=== PATIENT | male | born 1940 | race Caucasian/White ===

== ENCOUNTER 2017-11-19 09:53 | Day surgery (SDC) | payer MEDICARE, OTHER ==
[2017-11-19] VITALS (12 sets, daily range): BP systolic 114–149; BP diastolic 43–62
[~2017-11-19] VITALS: Ht 165.1 cm; Wt 75.7 kg
[~2017-11-19 09:53] MED LIST: ACET-2615 PO; ASPI81TA52 PO; CLOP75TA35 PO; MERC50TA2 PO; MESA0.37 PO; MULT-1085 PO; NIFE20CA PO; POTA20TA10 PO; PRED5TAB PO; ROSU20TA PO
[2017-11-19] MEDS ORDERED: diphenhydrAMINE 25mg capsule PO PRN (10:20)
[2017-11-19] MEDS ORDERED: normal saline 1000ml 1,000 ML IV SCH (10:20)
[2017-11-19] MEDS ORDERED: LORazepam 0.5 MG tablet PO PRN (10:20)
[2017-11-19] MEDS ORDERED: LIDOcaine/PRILOcaine 5gm cream TP ONE (10:20)
[2017-11-19] MEDS ORDERED: SPIR25TA PO (11:41)
[2017-11-19] MEDS ORDERED: ACET1TAB12 PO (11:41)
[2017-11-19] MEDS ORDERED: ROSU20TA PO (11:41)
[2017-11-19] MEDS ORDERED: LISI-600 PO (11:41)
[2017-11-19] MEDS ORDERED: nitroGLYCERIN-Tridil 50MG/D5W 250 ML IV ONE (12:10)
[2017-11-19] MEDS ORDERED: verapamil 2.5 mg/ml inj IV ONE (12:10)
[2017-11-19] MEDS ORDERED: heparin 1,000unit/ml 10ml vial 10 ML ONE (12:11)
[2017-11-19] MEDS ORDERED: LIDOcaine 1% 30ml preserv. free vial ONE (12:11)
[2017-11-19] MEDS ORDERED: midazolam 2 mg/2 ml injection ONE (12:11)
[2017-11-19] MEDS ORDERED: iohexol 350MG/ML 100ml bottle IV ONE ×2 (12:11→12:56)
[2017-11-19] MEDS ORDERED: fentaNYL/PF 50MCG/1 ML 2ML syringe ONE (12:11)
[2017-11-19] MEDS ORDERED: proCHLORperazine 10 MG/2 ml inj IV PRN (13:50)
[2017-11-19] MEDS ORDERED: OXAZEpam 15mg capsule PO PRN (13:50)
[2017-11-19] MEDS ORDERED: ondansetron/PF 4mg/2ml inj IV PRN (13:50)
== END 2017-11-19 18:50 | disposition home or self-care (01) ==
LOC: SSTAY O 09:53
PROVIDERS: ATTEND Internal Medicine Interventional Cardiology
DX: I25.10 Atherosclerotic heart disease of native coronary artery without angina pectoris (principal); I35.0 Nonrheumatic aortic (valve) stenosis; I73.9 Peripheral vascular disease, unspecified; I12.9 Hypertensive chronic kidney disease with stage 1 through stage 4 chronic kidney disease, or unspecified chronic kidney disease; N18.9 Chronic kidney disease, unspecified; E78.5 Hyperlipidemia, unspecified; I65.23 Occlusion and stenosis of bilateral carotid arteries; I71.4 Abdominal aortic aneurysm, without rupture; I49.8 Other specified cardiac arrhythmias; M19.90 Unspecified osteoarthritis, unspecified site; Z90.89 Acquired absence of other organs; Z96.653 Presence of artificial knee joint, bilateral; Z98.52 Vasectomy status; Z91.011 Allergy to milk products; Z95.828 Presence of other vascular implants and grafts; Z87.891 Personal history of nicotine dependence; Z90.49 Acquired absence of other specified parts of digestive tract; Z86.11 Personal history of tuberculosis; Z85.828 Personal history of other malignant neoplasm of skin; Z79.891 Long term (current) use of opiate analgesic; Z79.82 Long term (current) use of aspirin; Z88.8 Allergy status to other drugs, medicaments and biological substances; Z79.899 Other long term (current) drug therapy; Z98.890 Other specified postprocedural states; Z82.49 Family history of ischemic heart disease and other diseases of the circulatory system
CPT/HCPCS: 93458; 99152; 99153; A6257; A6402; C1769; J1644; J2250; J3010; J3490; J7030; Q0163; Q9967; 93005

== ENCOUNTER 2018-01-05 12:50 | Inpatient (IN) | payer MEDICARE, OTHER ==
[~2018-01-05] VITALS: Ht 165.1 cm; Wt 72.7 kg
[~2018-01-05 12:50] MED LIST changes: -ACET-2615 PO; +ACET1TAB12 PO; -CLOP75TA35 PO; +LISI-600 PO; -NIFE20CA PO; -POTA20TA10 PO; +SPIR25TA PO
[2018-01-05 13:24] LABS: BASOPHILS % (AUTO) 0.2 % (0-1); EOSINOPHILS % (AUTO) 0.3 % (0-6); HEMATOCRIT 27.3 % (42.0-52.0); HEMOGLOBIN 9.1 g/dl (14.0-17.9); LYMPHOCYTES # (AUTO) 0.6 X10'3 (1.1-4.8); MEAN CORPUSCULAR HEMOGLOBIN 35.8 PG (27.0-31.0); MEAN CORPUSCULAR HGB CONC 33.1 % (33.0-36.5); MEAN CORPUSCULAR VOLUME 108.1 FL (78-98); MONOCYTES # (AUTO) 0.2 X10'3 (0-0.9); MONOCYTES % (AUTO) 1.2 % (2-12); NEUTROPHILS # (AUTO) 14.4 X10'3 (1.8-7.7); NEUTROPHILS % (AUTO) 94.3 % (42-75); PLATELET COUNT 126 X10'3 (140-440); RED BLOOD COUNT 2.53 X10'6 (4.70-6.10); RED CELL DISTRIBUTION WIDTH 18.4 % (11.5-14.5); WHITE BLOOD COUNT 15.3 X10'3 (4.5-11.0)
[2018-01-05 13:41] LABS: ALANINE AMINOTRANSFERASE 47 U/L (12-78); ALBUMIN 2.8 G/DL (3.4-5.0); ALBUMIN/GLOBULIN RATIO 0.9 (1.1-1.5); ALKALINE PHOSPHATASE 62 IU/L (46-116); ANION GAP 10 (8-16); ASPARTATE AMINO TRANSFERASE 45 U/L (10-37); BILIRUBIN,TOTAL 1.3 MG/DL (0.1-1.0); BLOOD UREA NITROGEN 37 MG/DL (7-18); BUN/CREATININE RATIO 19.1 (5.4-32.0); CALCIUM 8.6 MG/DL (8.5-10.1); CHLORIDE 103 MMOL/L (99-107); CREATININE 1.94 MG/DL (0.60-1.10); GLUCOSE 77 MG/DL (70-104); POTASSIUM 4.6 MMOL/L (3.5-5.1); SODIUM 137 MMOL/L (135-145); TOTAL CARBON DIOXIDE 24.3 MMOL/L (24-32); eGFR 34 ML/MIN
[2018-01-05 13:44] LABS: ANISOCYTOSIS 2+; NUCLEATED RED BLOOD CELLS 11 /100WBC (0-0); PLATELET ESTIMATE DECREASED; POLYCHROMASIA 1+; TOTAL CELLS COUNTED 100
[2018-01-05 13:48] LABS: MAGNESIUM 1.8 MG/DL (1.5-2.4)
[2018-01-05] MEDS ORDERED: aspirin 81mg tab.chew PO ONE (14:00)
[2018-01-05] MEDS ORDERED: PRE5T PO (14:18)
[2018-01-05] MEDS ORDERED: MESA0.37 PO (14:18)
[2018-01-05] MEDS ORDERED: ACET1TAB14 PO (14:18)
[2018-01-05] MEDS ORDERED: ROSU10TA PO (14:18)
[2018-01-05] MEDS ORDERED: potassium Cl 40MEQ/NS 500ml 500 ML IV PRN ×2 (14:50)
[2018-01-05] MEDS ORDERED: bisacodyl 10mg suppository rectal RC PRN (14:50)
[2018-01-05] MEDS ORDERED: ondansetron/PF 4mg/2ml inj IV PRN (14:50)
[2018-01-05] MEDS ORDERED: magnesium 1gm/100ml D5W IVPB 100 ML IV PRN (14:50)
[2018-01-05] MEDS ORDERED: magnesium 4gm in 100ml NS 100 ML IV PRN (14:50)
[2018-01-05] MEDS ORDERED: mag hydrox/Alum hydrox/simeth 30ml oral suspension PO PRN (14:50)
[2018-01-05] MEDS ORDERED: morphine 2 MG/ML inj. syringe IV PRN ×2 (14:50)
[2018-01-05] MEDS ORDERED: potassium Cl 20 mEq SR tablet PO PRN ×2 (14:50)
[2018-01-05] MEDS ORDERED: acetaminophen 325mg tablet PO PRN (14:50)
[2018-01-05] MEDS ORDERED: CLOP75TA17 PO (15:25)
[2018-01-05 15:56] VITALS: BP 115/27
[2018-01-05] MEDS: normal saline 1000ml 1,000 ML IV SCH (16:17)
[2018-01-05 19:00] VITALS: BP 146/40
[2018-01-05] MEDS: acetaminophen w/codeine (30MG) #3 tablet PO PRN ×2 (19:09→23:18)
[2018-01-05 23:00] VITALS: BP 117/37
[2018-01-06] VITALS (16 sets, daily range): BP systolic 77–137; BP diastolic 32–52
[2018-01-06] MEDS: normal saline 1000ml 1,000 ML IV SCH ×2 (00:49→10:49)
[2018-01-06] MEDS ORDERED: normal saline 1000ml 1,000 ML IV ONE (01:30)
[2018-01-06] MEDS ORDERED: levoFLOXACIN-Levaquin 750MG/D5 150 ML IV STA (01:52)
[2018-01-06 02:45] LABS: ABG BASE EXCESS -5.8 mmol/L (-2.0-3.0); ABG HCO3 16.1 mmol/L (22.0-26.0); ABG OXYGEN SATURATION 96.2 % (95-98); ABG PCO2 (T) 22.6 mmHg (35.0-48.0); ABG PH (T) 7.479 (7.350-7.450); ABG PO2 (T) 93.5 mmHg (83-108); ALLEN'S TEST Positive; FCOHb 0.3 % (0.5-1.5); FLOW 5 L/min; FMetHb 0.3 % (0.3-1.12); FO2Hb 95.6 % (94-100); PATIENT TEMPERATURE 39.3; TOTAL HEMOGLOBIN 7.8 G/dl (14.0-18.0)
[2018-01-06 02:55] LABS: BASOPHILS % (AUTO) 0 % (0-1); EOSINOPHILS % (AUTO) 0 % (0-6); HEMOGLOBIN 7.5 g/dl (14.0-17.9); LYMPHOCYTES # (AUTO) 0.1 X10'3 (1.1-4.8); LYMPHOCYTES % (AUTO) 1.3 % (21-51); MEAN CORPUSCULAR HEMOGLOBIN 36.7 PG (27.0-31.0); MEAN CORPUSCULAR HGB CONC 34.3 % (33.0-36.5); MEAN CORPUSCULAR VOLUME 106.9 FL (78-98); MEAN PLATELET VOLUME 9.1 FL (7.4-10.4); MONOCYTES # (AUTO) 0.1 X10'3 (0-0.9); MONOCYTES % (AUTO) 1.1 % (2-12); NEUTROPHILS # (AUTO) 10.5 X10'3 (1.8-7.7); NEUTROPHILS % (AUTO) 97.6 % (42-75); PLATELET COUNT 74 X10'3 (140-440); RED BLOOD COUNT 2.04 X10'6 (4.70-6.10); RED CELL DISTRIBUTION WIDTH 17.6 % (11.5-14.5); WHITE BLOOD COUNT 10.8 X10'3 (4.5-11.0)
[2018-01-06] MEDS ORDERED: vancomycin/NS 1 GM ADD-VANTAGE 250 ML IV ONE (03:00)
[2018-01-06 03:13] LABS: OCCULT BLOOD STOOL NEGATIVE (Neg)
[2018-01-06 03:13] LABS: ALANINE AMINOTRANSFERASE 33 U/L (12-78); ALBUMIN/GLOBULIN RATIO 0.8 (1.1-1.5); ALKALINE PHOSPHATASE 58 IU/L (46-116); ANION GAP 15 (8-16); ASPARTATE AMINO TRANSFERASE 57 U/L (10-37); BILIRUBIN,TOTAL 1.1 MG/DL (0.1-1.0); BLOOD UREA NITROGEN 48 MG/DL (7-18); BUN/CREATININE RATIO 13.2 (5.4-32.0); CALCIUM 7.6 MG/DL (8.5-10.1); CHLORIDE 104 MMOL/L (99-107); CHOL/HDL RATIO 3.1 (0.00-4.99); CHOLESTEROL 126 MG/DL (0-200); CREATININE 3.63 MG/DL (0.60-1.10); GLUCOSE 73 MG/DL (70-104); HDL CHOLESTEROL 41 MG/DL (35-60); LDL CHOLESTEROL 56 MG/DL (50-100); MAGNESIUM 1.4 MG/DL (1.5-2.4); SODIUM 137 MMOL/L (135-145); TOTAL CARBON DIOXIDE 18.2 MMOL/L (24-32); TOTAL PROTEIN 4.6 G/DL (6.4-8.2); TRIGLYCERIDES 209 MG/DL (20-135); eGFR 16 ML/MIN
[2018-01-06 03:46] LABS: HEMATOCRIT 21.9 % (42.0-52.0)
[2018-01-06] MEDS ORDERED: vancomycin/NS 1 GM ADD-VANTAGE 250 ML IV PRN (04:40)
[2018-01-06 05:41] LABS: PLATELET ESTIMATE DECREASED
[2018-01-06 05:42] LABS: ANISOCYTOSIS 2+; POLYCHROMASIA 1+
[2018-01-06] MEDS ORDERED: piperacillin-tazo 2.25gm/50ml 50 ML IV SCH (06:00)
[2018-01-06 07:01] LABS: PHOSPHORUS 3.7 MG/DL (2.3-4.5)
[2018-01-06 07:09] LABS: TROPONIN I 2.48 NG/ML (0.0-0.05)
[2018-01-06 07:36] LABS: ABG BASE EXCESS -5.5 mmol/L (-2.0-3.0); ABG HCO3 17.6 mmol/L (22.0-26.0); ABG PCO2 (T) 25.4 mmHg (35.0-48.0); ABG PH (T) 7.458 (7.350-7.450); FMetHb 0.3 % (0.3-1.12); FO2Hb 93.7 % (94-100); TOTAL HEMOGLOBIN 7.7 G/dl (14.0-18.0)
[2018-01-06 07:41] LABS: OXYGEN SATURATION (MIXED VEN) 55.4 % (60-80); PO2 MIXED VENOUS (TEMP COR) 28.3 mmHg (35-46)
[2018-01-06] MEDS ORDERED: multivitamins, therapeutics tablet PO SCH (08:00)
[2018-01-06] MEDS ORDERED: clopidogrel 75mg tablet PO SCH (08:00)
[2018-01-06] MEDS ORDERED: MESALAMINE 0.375 GM PO SCH (08:00)
[2018-01-06] MEDS ORDERED: predniSONE 5mg tablet PO SCH (08:00)
[2018-01-06] MEDS ORDERED: enoxaparin 40mg/0.4ml syringe SQ SCH (08:00)
[2018-01-06] MEDS ORDERED: lisinopril 20mg tablet PO SCH (08:00)
[2018-01-06] MEDS ORDERED: aspirin 81mg tablet.DR PO SCH (08:00)
[2018-01-06] MEDS ORDERED: atorvastatin 20mg tablet PO SCH (08:00)
[2018-01-06] MEDS ORDERED: K and/or MAG REPLACEMENT MC SCH (08:00)
[2018-01-06] MEDS ORDERED: NORepinephrine 8mg/ 250ml NS 250 ML IV ONE (08:31)
[2018-01-06 08:34] LABS: CLARITY,URINE CLEAR (Clear); COLOR,URINE YELLOW (Yellow); GLUCOSE, URINE NEGATIVE (Neg); KETONES,URINE NEGATIVE (Neg); LEUKOCYTE ESTERASE ,URINE NEGATIVE (Neg); NITRITES, URINE NEGATIVE (Neg); OCCULT BLOOD,URINE LARGE (Neg); PROTEIN,URINE NEGATIVE (Neg); UROBILINOGEN,URINE 0.2 E.U/dL (0.2-1.0)
[2018-01-06 08:35] LABS: UA COLLECTION TYPE FOLEY CATH
[2018-01-06 08:41] LABS: BACTERIA,URINE NONE SEEN /HPF (Neg); MUCUS STRANDS MANY /LPF (Neg); RBC,URINE 20-50 /HPF (0-2); SQUAMOUS EPITHELIAL CELL,UR FEW /LPF (FEW); WBC,URINE 0-4 /HPF (0-4)
[2018-01-06 08:42] LABS: AMORPHOUS URATES 2+; COARSE GRANULAR CAST 0-3 /LPF (NEGATIVE)
[2018-01-06] MEDS ORDERED: esmolol/sodium cl bag 250 ML IV ONE (08:52)
[2018-01-06] MEDS ORDERED: furosemide 40mg/4ml inj IV ONE (08:55)
[2018-01-06] MEDS ORDERED: esmolol/sodium cl bag 250 ML IV SCH (08:55)
[2018-01-06] MEDS ORDERED: propofol 1000mg/100ml bottle 100 ML IV PRN (09:14)
[2018-01-06] MEDS ORDERED: propofol 1000mg/100ml bottle 100 ML IV ONE (09:15)
[2018-01-06] MEDS: NORepinephrine 8mg/ 250ml NS 250 ML IV SCH ×2 (09:21→13:56)
[2018-01-06 09:30] LABS: ABG BASE EXCESS -8.5 mmol/L (-2.0-3.0); ABG HCO3 16.3 mmol/L (22.0-26.0); ABG OXYGEN SATURATION 97.7 % (95-98); ABG PCO2 (T) 30.4 mmHg (35.0-48.0); ABG PH (T) 7.347 (7.350-7.450); ABG PO2 (T) 117.6 mmHg (83-108); FCOHb 0.3 % (0.5-1.5); FMetHb 0.3 % (0.3-1.12); FO2Hb 97.1 % (94-100); MINUTE VOLUME 10 L/min; PEEP 5 cm H2O; RESPIRATORY RATE 16 b/min; RESPIRATORY RATE (OBSERVED) 16 b/min; TIDAL VOLUME 550 mL; TOTAL HEMOGLOBIN 7.6 G/dl (14.0-18.0)
[2018-01-06] MEDS ORDERED: rocuronium 10mg/ml inj IV ONE (10:00)
[2018-01-06] MEDS ORDERED: etomidate 2mg/ml inj. ONE (10:00)
[2018-01-06] MEDS ORDERED: albumin (Human) 5% 250ml 250 ML IV ONE (12:15)
[2018-01-06] MEDS ORDERED: albumin (Human) 5% 250ml 1,000 ML IV ONE (12:40)
[2018-01-06] MEDS ORDERED: vasopressin inj. 60 UNIT in normal saline 100ml IV soln 97 ML IV SCH (13:45)
[2018-01-06] MEDS ORDERED: pantoprazole 40MG/NS 100ML BAG 100 ML IV SCH (16:00)
[2018-01-07] MEDS ORDERED: VANCOMYCIN LEVEL IV SCH (03:00)
== END 2018-01-06 17:40 | disposition short-term general hospital (02) | DRG 314 ==
LOC: ER 12:50 → ED HOLD 14:48 → PCU 3S 16:42 → CICU 2S 01-06 05:58
PROVIDERS: ADMIT Family Medicine; ATTEND Internal Medicine Critical Care Medicine
PROC: 30233N1 Transfusion of Nonautologous Red Blood Cells into Peripheral Vein, Percutaneous Approach (ICD-10-PCS; principal; 2018-01-06)
PROC: 05HM33Z Insertion of Infusion Device into Right Internal Jugular Vein, Percutaneous Approach (ICD-10-PCS; 2018-01-06)
PROC: 03HY32Z Insertion of Monitoring Device into Upper Artery, Percutaneous Approach (ICD-10-PCS; 2018-01-06)
PROC: 4A133B1 Monitoring of Arterial Pressure, Peripheral, Percutaneous Approach (ICD-10-PCS; 2018-01-06)
PROC: 4A133J1 Monitoring of Arterial Pulse, Peripheral, Percutaneous Approach (ICD-10-PCS; 2018-01-06)
PROC: 5A09357 Assistance with Respiratory Ventilation, Less than 24 Consecutive Hours, Continuous Positive Airway Pressure (ICD-10-PCS; 2018-01-06)
PROC: 0BH17EZ Insertion of Endotracheal Airway into Trachea, Via Natural or Artificial Opening (ICD-10-PCS; 2018-01-06)
PROC: 5A1935Z Respiratory Ventilation, Less than 24 Consecutive Hours (ICD-10-PCS; 2018-01-06)
DX: T82.6XXA Infection and inflammatory reaction due to cardiac valve prosthesis, initial encounter (principal); A41.2 Sepsis due to unspecified staphylococcus; R65.21 Severe sepsis with septic shock; K51.90 Ulcerative colitis, unspecified, without complications; N17.9 Acute kidney failure, unspecified; L02.214 Cutaneous abscess of groin; D64.9 Anemia, unspecified; G89.29 Other chronic pain; H11.32 Conjunctival hemorrhage, left eye; I12.9 Hypertensive chronic kidney disease with stage 1 through stage 4 chronic kidney disease, or unspecified chronic kidney disease; M54.5 Low back pain; I72.3 Aneurysm of iliac artery; Y83.1 Surgical operation with implant of artificial internal device as the cause of abnormal reaction of the patient, or of later complication, without mention of misadventure at the time of the procedure; R06.89 Other abnormalities of breathing; I73.9 Peripheral vascular disease, unspecified; N18.9 Chronic kidney disease, unspecified; Z95.820 Peripheral vascular angioplasty status with implants and grafts; Z95.2 Presence of prosthetic heart valve; Z90.49 Acquired absence of other specified parts of digestive tract; Z88.8 Allergy status to other drugs, medicaments and biological substances; Z91.011 Allergy to milk products; Z79.82 Long term (current) use of aspirin; Z79.02 Long term (current) use of antithrombotics/antiplatelets; Z79.899 Other long term (current) drug therapy; Z87.891 Personal history of nicotine dependence; Z82.49 Family history of ischemic heart disease and other diseases of the circulatory system; Y92.89 Other specified places as the place of occurrence of the external cause
CPT/HCPCS: 36415; 36600; 71045; 80053; 80061; 81001; 82272; 82803; 82810; 83605; 83735; 83880; 84100; 84478; 84484; 85018; 85025; 86885; 86900; 86901; 86920; 87040; 87070; 87077; 87186; 87502; 87503; 93005; 93306; 93926; 94002; 94660; 94760; 99285; C9113; G0378; J1940; J1956; J2270; J2543; J2704; J3370; J3475; J3490; J7030; P9016; P9045